=== PATIENT | female | born 1985 | race American Indian/Alaskan Native ===

== ENCOUNTER 2017-02-12 19:00 | Emergency (ER) | payer MEDICAID ==
[2017-02-12] MEDS ORDERED: CLEOCIN IM ONE (23:31)
[2017-02-12] MEDS ORDERED: MOTRIN PO ONE (23:31)
[2017-02-12] MEDS ORDERED: TRIPLE ANTIBIOTIC TP ONE (23:31)
[2017-02-12] MEDS ORDERED: BOOSTRIX IM ONE (23:31)
--- NOTE | 2017-02-12 23:31 | Emergency Department Report ---
Abscess Boil HPI - HPI Chief Complaint: Skin/Abscess/Foreign Body Stated Complaint: INSECT BITES ON FACE Time Seen by Provider: 02/12/17 22:21 Duration: 3 Days Location: Head (forehead) Severity: Severe (8 out of 10) History: Yes Pain (reports wound to forehead that is painful and 8 out of 10.), Yes Purulent Drainage (reports pus draining from forehead), Yes Insect Bite ( patient states she's been bitten by insect.), No Fever, No Numbness, No Foreign Body, No Previous History HPI: Patient here reports that she has one to her forehead this been draining pus. She said it started 3 days ago and she thinks she's been bitten by insect but not sure what kind of insect. Her tetanus vaccine is not up-to-date. Denies any fever or chills. She said it's getting worse and she is given swelling around her right eye. Pain is 8 out of 10 and aching. Denies taking any [id number] medication. She says she tried to pick at the site to get it open but it's not working. Home Medications: Previous Rx's Medication Instructions Recorded Last Taken Type Clindamycin [Clindamycin CAP] 300 mg PO Q6H #40 capsule 02/12/17 Unknown Rx Ibuprofen [Motrin 600 MG tab] 600 mg PO Q8H PRN #15 tablet 02/12/17 Unknown Rx Allergies/Adverse Reactions: Allergies Allergy/AdvReac Type Severity Reaction Status Date / Time amoxicillin Allergy Unknown Verified 02/24/16 15:55 ED Review of Systems ROS: Stated complaint: INSECT BITES ON FACE Other details as noted in HPI Comment: All other systems reviewed and negative Constitutional: no symptoms reported Eyes: denies: eye pain, eye discharge, vision change Respiratory: no symptoms reported Cardiovascular: denies: chest pain, palpitations, dyspnea on exertion, orthopnea , edema, syncope, paroxysmal nocturnal dyspnea Gastrointestinal: denies: abdominal pain, nausea, vomiting Genitourinary: denies: urgency, dysuria, frequency, hematuria, discharge, abnormal menses Musculoskeletal: denies: back pain, joint swelling, arthralgia, myalgia Skin: other (reports wanting to mid forehead 3 days that is draining pus) Neurological: denies: headache, numbness, paresthesias, abnormal gait, vertigo ED Past Medical Hx - Past Medical History Previous Medical History?: Yes Hx Psychiatric Treatment: Yes (bipolar) Additional medical history: herpes - Surgical History Past Surgical History?: Yes Additional Surgical History: tubal ligation - Family History Family history: hypertension - Social History Smoking Status: Current Every Day Smoker Substance Use Type: None - Medications Home Medications: Home Medications Medication Instructions Recorded Confirmed Last Taken Type Clindamycin [Clindamycin CAP] 300 mg PO Q6H #40 capsule 02/12/17 Unknown Rx Ibuprofen [Motrin 600 MG tab] 600 mg PO Q8H PRN #15 tablet 02/12/17 Unknown Rx ED Abscess Boil Physical Exam - Exam General: Vital signs noted. No distress. Alert and acting appropriately. This is a 32-year-old female well-nourished well-developed in no acute distress. Front/Back of Body, Lg (Color): 1 - Dime-sized indurated area with fluctuance and opened into the center of wound with mild erythema surrounding wound. Tender to palpate small amount of pus. no necrosis noted. Mild swelling around the right eye without any visual difficulties. Size: 1 cm Exam: Yes Tenderness (wound right forehead), Yes Fluctuance, Yes Surrounding Cellulites/Erythema, Yes Normal Neurologic Exam, Yes Normal Circulation, No Lymphangitis, No Crepitation, No Heart Murmur Exam: Head: Normocephalic, atraumatic,. Eyes: Biateral pupils equal and reactive to light, bilateral EOM intact.. Bilateral conjunctival and sclera without injection, normal accommodation. Right periorbital area with mild swelling without any erythema. Visual acuity is 20/20 all around in both eyes. Neck: Supple, no Cervical adenopathy, full range of motion and no C-spine tenderness. No swelling or tracheal deviation. Cardiovascular: S1, S2. Regular rate and rhythm. No murmur. Capillary refill is less then 3 seconds. Lungs: Clear to auscultate bilaterally. No rhonchi, wheezes or rales. No. Extremities: No clubbing, cyanosis or edema. +2 pulses. No neurovascular compromise. Skin: Clean, dry and intact. No rash or lesions. Psych: Normal mood and behavior. I & D Note - I & D Note I & D Note: Patient will want to forehead that is already draining. Area cleansed with normal saline and Neosporin ointment place aside followed by dry sterile dressing. Patient encouraged to apply warm compresses to affected area 3-4 times a day to facilitate drainage. She was given clindamycin 600 mg I am and emergency room and also booster Vaccine. She was also given Motrin 800 mg by mouth for pain. There are no need to drain abscess because it's already draining. ED Course Vital Signs 02/12/17 19:06 Temperature 98.4 F Pulse Rate 88 Respiratory 18 Rate Blood Pressure 121/78 O2 Sat by Pulse 99 Oximetry - Reevaluation(s) Reevaluation #1: 02/12/17 23:41 Patient given Motrin 800 mg for pain, clindamycin 600 mg IM for cellulitis and booster 0.5 mL IM for tetanus vaccine. Right forehead wound cleansed with normal saline and Neosporin ointment place aside followed by dry sterile dressing. Critical care attestation.: If time is entered above; I have spent that time in minutes in the direct care of this critically ill patient, excluding procedure time. ED Medical Decision Making - Medical Decision Making ED course: Patient with abscess and cellulitis to forehead and swelling to right periorbital area. She was given Motrin 800 mg emergency room for pain, clindamycin 600 mg IM for infection and booster 0.5 mL to update tetanus. 1 to forehead cleansed with normal saline and Neosporin ointment place the site. Thus the patient that ear is already draining so there is no need to incision and drain and that she'll need to place warm compresses to the site 3-4 times a day to facilitate drainage. I discussed with her diagnosis and treatment plan and she voiced understanding. I also expressed to her if she developed increased redness and swelling to facial area to return to emergency room otherwise follow-up at [facility] in 2-3 days and if she cannot get in that she can return to the emergency room for follow-up. Patient does not have a primary care physician. Patient discharged home with prescription for Motrin and clindamycin. ED Disposition Clinical Impression: Abscess or cellulitis of forehead Insect bite Qualifiers: Encounter type: initial encounter Qualified Code(s): W57.XXXA - Bitten or stung by nonvenomous insect and other nonvenomous arthropods, initial encounter Disposition: DC-01 TO HOME OR SELFCARE Is pt being admited?: No Does the pt Need Aspirin: No Condition: Stable Instructions: Abscess (ED), Cellulitis (ED), Insect Bite or Sting (ED), Acute Wound Care (ED) Additional Instructions: Please follow discharge instructions on a every care Take All antibiotic as prescribed Apply warm compresses to affected area 3-4 times a day to facilitate drainage Return to the emergency room in 2-3 days if he cannot get in with [facility] for reevaluation If you develop increased redness, swelling, fever and/or chills please return to emergency room RONN Prescriptions: Clindamycin [Clindamycin CAP] 300 mg PO Q6H #40 capsule Ibuprofen [Motrin 600 MG tab] 600 mg PO Q8H PRN #15 tablet PRN Reason: Pain Referrals: [facility] [Outside] - 2-3 Days Forms: Work/School Release Form(ED)
[2017-02-13 11:29] VITALS: BP 121/78
== END 2017-02-13 00:30 | disposition home or self-care (01) ==
LOC: ED 19:00
DX: S00.86XA Insect bite (nonvenomous) of other part of head, initial encounter (principal); L03.811 Cellulitis of head [any part, except face]; F17.200 Nicotine dependence, unspecified, uncomplicated; Z88.1 Allergy status to other antibiotic agents; W57.XXXA Bitten or stung by nonvenomous insect and other nonvenomous arthropods, initial encounter; Y93.9 Activity, unspecified; Y99.9 Unspecified external cause status; Y92.89 Other specified places as the place of occurrence of the external cause
CPT/HCPCS: 90471; 90715; 96372; 99282; A6250